=== PATIENT | female | born 1990 | race Caucasian/White ===

== ENCOUNTER 2017-01-16 09:26 | Emergency (ER) | payer MEDICAID ==
[~2017-01-16] VITALS: Ht 157.5 cm; Wt 70.0 kg
[~2017-01-16 09:26] MED LIST: ALBUAER3 INH; BENZ100 PO; MEDR4PAK PO; OSEL75 PO
[2017-01-16 09:29] VITALS: BP 113/54; PULSE 58; RESP 20; TEMP 98; O2SAT 98
[2017-01-16] MEDS ORDERED: KETOROLAC TROMETHAMINE 60 MG/2 ML (IM) VIAL IM ONE (10:30)
[2017-01-16] MEDS ORDERED: ORPHENADRINE INJ 60 MG/2 ML AMP IM ONE (10:30)
--- NOTE | 2017-01-16 10:33 | PD ---
HPI Chief Complaint: Back/ Neck Pain or Injury Time Seen by Provider: 10:31 Travel History International Travel<30 days: No Contact w/Intl Traveler<30days: No Traveled to known affect area: No History of Present Illness HPI 26-year-old female presents to the emergency department for evaluation of low back pain since Sunday, 4 days ago. Patient denies a traumatic injury. She does state the pain is worse with movement. She is also concerned that she may have UTI reporting similar symptoms with UTIs in the past. She denies any dysuria, but states she does have some mild urinary urgency and frequency. Patient denies having any chronic medical problems or taking any prescribed medications. She denies any chance of reporting a previous tubal ligation. Patient denies he fevers or chills. No loss of bowel or bladder control. No saddle anesthesias. No other complaints. PFSH Past Medical History Hx Anticoagulant Therapy: No Cardiovascular Problems: No Chemotherapy: No Cerebrovascular Accident: No Diabetes: No Diminished Hearing: No Respiratory: No Immunizations Current: Yes ?: Not LMP: 12/27/16 Menopausal: No : 5 Para: 4 Miscarriage: 1 Past Surgical History Section: Yes Hysterectomy: No Social History Alcohol Use: No Tobacco Use: No Substance Use: No Allergies-Medications (Allergen,Severity, Reaction): Coded Allergies: No Known Allergies (Verified , 10/19/16) Reported Meds & Prescriptions Reported Meds & Active Scripts Active Tamiflu (Oseltamivir Phosphate) 75 Mg Cap 75 Mg PO BID 5 Days Proair Hfa 8.5 GM Inh (Albuterol Sulfate) 90 Mcg/Act Aer 2 Puff INH Q4-6H PRN 108 mcg/actuation Medrol Dosepak (Methylprednisolone) 4 Mg Dspk 4 Mg PO DIRECTED Per Pharmacist direction Tesariel Perles (Benzonatate) 100 Mg Cap 100-200 Mg PO TID PRN Review of Systems Except as stated in HPI: all other systems reviewed are Neg Physical Exam Narrative GENERAL: Well-developed well-nourished female patient, ambulatory. Afebrile. SKIN: Warm and dry. HEAD: Normocephalic. Atraumatic. EYES: No scleral icterus. No injection or drainage. NECK: Supple, trachea midline. No JVD or lymphadenopathy. CARDIOVASCULAR: Regular rate and rhythm without murmurs, gallops, or rubs. RESPIRATORY: Breath sounds equal bilaterally. No accessory muscle use. Lungs sounds are clear to auscultation. GASTROINTESTINAL: Abdomen soft, non-tender, nondistended. MUSCULOSKELETAL: No cyanosis, or edema. Bilateral upper and lower extremity strength 5/5. All extremities are neurovascularly intact. BACK: No obvious deformity. No CVA tenderness. Patient has tenderness to palpation over bilateral lumbar paraspinal musculature. Data Data Last Documented VS Vital Signs Date Time Temp Pulse Resp B/P Pulse Ox O2 Delivery O2 Flow Rate FiO2 01/16/17 09:29 98.0 58 20 113/54 98 Orders Urinalysis - C+S If Indicated (01/16/17 10:30) Ketorolac Inj (Toradol Inj) (01/16/17 10:30) Orphenadrine Inj (Norflex Inj) (01/16/17 10:30) Urine Culture (01/16/17 10:30) Labs Laboratory Tests Test 01/16/17 10:30 Urine Color YELLOW Urine Turbidity CLOUDY Urine pH 7.5 Urine Specific [place] 1.018 Urine Protein TRACE mg/dL Urine Glucose (UA) NEG mg/dL Urine Ketones NEG mg/dL Urine Occult Blood NEG Urine Nitrite NEG Urine Bilirubin NEG Urine Urobilinogen LESS THAN 2.0 MG/DL Urine Leukocyte Esterase MOD Urine RBC 1 /hpf Urine WBC 10 /hpf Urine Squamous Epithelial 26 /hpf Cells Urine Amorphous Sediment FEW Urine Bacteria OCC /hpf Urine Mucus FEW /lpf Microscopic Urinalysis Comment CULTURE INDICATED MDM Medical Decision Making Medical Screen Exam Complete: Yes Emergency Medical Condition: Yes Medical Record Reviewed: Yes Differential Diagnosis Muscle strain versus muscle spasm versus UTI Narrative Course 26-year-old female presents to the emergency department for evaluation of low back pain. She is concerned she may have UTI as well. Physical exam is consistent with a muscle strain. Patient is given Toradol 60 mg IM and Norflex 60 mg IM. UA is ordered and pending. UA shows moderate leukocyte esterase, however, there are 26 wall is epithelial cells. Due to symptoms, the patient will be discharged prescription for Macrobid for UTI. She also be given a prescription for diclofenac and Robaxin. Patient is agreeable to this plan. The patient was discharged in stable condition with instructions, including return instructions and follow up instructions. Diagnosis Primary Impression: Muscle strain Additional Impression: Urinary tract infection Qualified Code: N30.00 - Acute cystitis without hematuria Referrals: Primary Care Physician call for appointment Patient Instructions: General Instructions, Muscle Strain (ED), Urinary Tract Infection in Women (ED) Additional Instructions: Take Macrobid as directed until gone. This is an antibiotic. Take diclofenac as directed as needed with food for pain. Do not take with other anti-inflammatories including ibuprofen and Robaxin. Take Robaxin as directed as needed. Follow-up with your primary care physician. Return to the emergency department for any acute worsening of symptoms. Med/Other Pt SpecificInfo: Prescription(s) given Scripts Nitrofurantoin Monohydrate Macrocrystals (Macrobid)100 Mg [id number] Mg PO BID 7 Days Ref 0 Prov:Shea Carcamo 01/16/17 Methocarbamol (Robaxin)750 Mg [id number] Mg PO TID PRN (MUSCLE SPASM) #21 TAB Ref 0 Prov:Shea Carcamo 01/16/17 Diclofenac Potassium 50 Mg Tab50 Mg PO TID PRN (PAIN SCALE 1 TO 10) #21 TAB Ref 0 Prov:Shea Carcamo 01/16/17 Disposition: 01 DISCHARGE HOME Condition: Stable Shea Carcamo Jan 16, 2017 10:33
[2017-01-16 11:03] LABS: BACTERIA, URINE OCC /hpf; BLOOD, URINE NEG (NEG); COMMENT (UR) CULTURE INDICATED; CULTURE IF INDICATED CULTURE INDICATED; GLUCOSE,URINE NEG (NEG); KETONE, URINE NEG (NEG); MUCUS URINE FEW /lpf (OCC); NITRITE,URINE NEG (NEG); PH, URINE 7.5 (5.0-8.5); SQUAMOUS EPITHELIAL CELL URINE 26 /hpf (0-5); URINE COLOR YELLOW (YELLW/STRAW)
[2017-01-16] MEDS ORDERED: MACR100C2 PO (11:24)
[2017-01-16] MEDS ORDERED: DICL50TA PO (11:24)
[2017-01-16] MEDS ORDERED: ROBA750T PO (11:24)
== END 2017-01-16 11:36 | disposition home or self-care (01) ==
LOC: NEPB 09:26
DX: S39.012A Strain of muscle, fascia and tendon of lower back, initial encounter (principal); X58.XXXA Exposure to other specified factors, initial encounter; Y93.9 Activity, unspecified; Y92.9 Unspecified place or not applicable; Y99.9 Unspecified external cause status; N39.0 Urinary tract infection, site not specified
CPT/HCPCS: 81001; 87086; 96372; 99283; J1885; J2360

== ENCOUNTER 2017-02-02 09:40 | Emergency (ER) | payer MEDICAID ==
[~2017-02-02] VITALS: Ht 157.5 cm; Wt 75.0 kg
[~2017-02-02 09:40] MED LIST changes: +DICL50TA PO; +MACR100C2 PO; +ROBA750T PO
[2017-02-02 09:42] VITALS: BP 102/53; PULSE 75; RESP 14; TEMP 98.2; O2SAT 98
--- NOTE | 2017-02-02 10:26 | PD ---
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 For the last 3 days she has had frequent urination, small volume. No dysuria or hematuria. She also notes increasing vaginal discharge, yellowish in color. History of recent gonorrhea, chlamydia that was treated. States that she has been having unprotected intercourse with the same partner. Slight amount of lower abdominal discomfort, but no flank pain, fevers chills, nausea or vomiting. PFSH Past Medical History Hx Anticoagulant Therapy: No Cardiovascular Problems: No Chemotherapy: No Cerebrovascular Accident: No Diabetes: No Diminished Hearing: No Respiratory: No Immunizations Current: Yes ?: Not LMP: JANUARY 2017 Menopausal: No : 5 Para: 4 Miscarriage: 1 Past Surgical History Section: Yes Hysterectomy: No Social History Alcohol Use: No Tobacco Use: No Substance Use: No Allergies-Medications (Allergen,Severity, Reaction): Coded Allergies: No Known Allergies (Verified , 10/19/16) Reported Meds & Prescriptions Reported Meds & Active Scripts Active No Active Prescriptions or Reported Medications Review of Systems Except as stated in HPI: all other systems reviewed are Neg Physical Exam Narrative GENERAL: Well-appearing female in no acute distress SKIN: Warm and dry. HEAD: Normocephalic. EYES: No scleral icterus. No injection or drainage. ENT: Mucous membranes pink and moist. NECK: Supple CARDIOVASCULAR: Regular rate and rhythm. RESPIRATORY: No accessory muscle use GASTROINTESTINAL: Abdomen soft, non-tender, nondistended. GENITOURINARY: Normal external female genitalia. Speculum examination reveals physiologic appearing discharge within the vaginal vault. No cervical erythema. Minimal uterine discomfort on bimanual examination but no cervical motion tenderness, adnexal fullness or mass. MUSCULOSKELETAL: Normal gait NEUROLOGICAL: Awake and alert.Normal speech. PSYCHIATRIC: Appropriate mood and affect; insight and judgment normal. Data Data Last Documented VS Vital Signs Date Time Temp Pulse Resp B/P Pulse Ox O2 Delivery O2 Flow Rate FiO2 02/02/17 09:42 98.2 75 14 102/53 98 Orders Urinalysis - C+S If Indicated (02/02/17 10:03) Ed Urine Pregnancytest Poc (02/02/17 10:03) Gc And Chlamydia Pcr (02/02/17 10:18) Wet Prep Profile (02/02/17 10:18) Labs Laboratory Tests Test 02/02/17 10:25 Urine Color YELLOW Urine Turbidity HAZY Urine pH 6.0 Urine Specific [place] 1.021 Urine Protein NEG mg/dL Urine Glucose (UA) NEG mg/dL Urine Ketones NEG mg/dL Urine Occult Blood NEG Urine Nitrite NEG Urine Bilirubin NEG Urine Urobilinogen LESS THAN 2.0 MG/DL Urine Leukocyte Esterase NEG Urine RBC 1 /hpf Urine WBC 2 /hpf Urine Squamous Epithelial 14 /hpf Cells Urine Bacteria OCC /hpf Urine Mucus FEW /lpf Microscopic Urinalysis Comment CULT NOT INDICATED Clue Cells (Wet Prep) NONE SEEN Vaginal Trichomonas (Wet Prep) NONE SEEN Vaginal Yeast (Wet Prep) NONE SEEN MDM Medical Decision Making Medical Screen Exam Complete: Yes Emergency Medical Condition: Yes Medical Record Reviewed: Yes Differential Diagnosis 26-year-old female here with complaint of small volume urinary frequency, vaginal discharge and lower abdominal discomfort. Differential includes , ectopic , urinary tract infection, cystitis and less likely pyelonephritis, sexually transmitted infection, yeast infection, bacterial vaginosis. Narrative Course Urine test was negative. I would not empirically treat patient for gonorrhea or chlamydia based on her symptoms, the specimen was sent to lab. Urinalysis and wet prep showed occasional bacteria but otherwise negative. Patient was encouraged to follow up with REFERRAL NURSE if symptoms persist. Diagnosis Primary Impression: Vaginitis Qualified Code: N76.0 - Acute vaginitis Referrals: Make Up Worker as needed Patient Instructions: General Instructions, Vaginitis (ED) Additional Instructions: Urine sample was normal without evidence of infection. Urine test negative. The wet prep was negative for yeast infection, Trichomonas or bacterial vaginosis. Gonorrhea and chlamydia sample have not yet resulted, and you'll be called for treatment if this does result positive. Follow-up with OB/ REFERRAL NURSE if symptoms persist. Med/Other Pt SpecificInfo: No Change to Meds Scripts No Active Prescriptions or Reported Meds Disposition: 01 DISCHARGE HOME Condition: Stable Elly Ortiz MD Feb 02, 2017 10:26
[2017-02-02 11:40] LABS: BACTERIA, URINE OCC /hpf; BLOOD, URINE NEG (NEG); COMMENT (UR) CULT NOT INDICATED; CULTURE IF INDICATED CULT NOT INDICATED; GLUCOSE,URINE NEG (NEG); KETONE, URINE NEG (NEG); MUCUS URINE FEW /lpf (OCC); NITRITE,URINE NEG (NEG); SQUAMOUS EPITHELIAL CELL URINE 14 /hpf (0-5); URINE COLOR YELLOW (YELLW/STRAW)
[2017-02-02 13:28] LABS: CHLAMYDIA PCR DETECTED (NOT DETECT); NEISSERIA PCR NOT DETECTED (NOT DETECT)
== END 2017-02-02 12:01 | disposition home or self-care (01) ==
LOC: NEPB 09:40
DX: N76.0 Acute vaginitis (principal); R10.30 Lower abdominal pain, unspecified
CPT/HCPCS: 81001; 84703; 87210; 87491; 87591; 99283

== ENCOUNTER 2017-04-25 10:01 | Emergency (ER) | payer MEDICAID ==
[~2017-04-25] VITALS: Ht 160 cm; Wt 68.0 kg
[2017-04-25 10:03] VITALS: BP 117/54; PULSE 58; RESP 20; TEMP 98.2; O2SAT 100
[2017-04-25] MEDS ORDERED: LIDOCAINE HCL 1% 50 ML VIAL IM ONE (10:45)
[2017-04-25] MEDS ORDERED: cefTRIAXone 250 MG VIAL IM ONE (10:45)
[2017-04-25] MEDS ORDERED: AZITHROMYCIN PWD FOR SUSP 1 GM PACKET PO ONE (10:45)
[2017-04-25 11:07] LABS: BACTERIA, URINE RARE /hpf; BLOOD, URINE NEG (NEG); COMMENT (UR) CULTURE INDICATED; CULTURE IF INDICATED CULTURE INDICATED; GLUCOSE,URINE NEG (NEG); KETONE, URINE NEG (NEG); MUCUS URINE FEW /lpf (OCC); NITRITE,URINE NEG (NEG); PH, URINE 5.5 (5.0-8.5); SQUAMOUS EPITHELIAL CELL URINE 40 /hpf (0-5); URINE COLOR YELLOW (YELLW/STRAW)
[2017-04-25] MEDS ORDERED: CIPR-9 PO (11:47)
--- NOTE | 2017-04-25 11:47 | PD ---
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 She says for the past 2 weeks she has had a yellowish, foul-smelling discharge. She also complains of lower abdominal cramping. She denies fever or chills. She denies nausea or vomiting. She says she has had chlamydia in the past, this feels similar. PFSH Past Medical History Hx Anticoagulant Therapy: No Cardiovascular Problems: No Chemotherapy: No Cerebrovascular Accident: No Diabetes: No Diminished Hearing: No Respiratory: No Immunizations Current: Yes ?: Not LMP: 03/29/17 Menopausal: No : 5 Para: 4 Miscarriage: 1 Tubal Ligation: Yes Past Surgical History Section: Yes Hysterectomy: No Social History Alcohol Use: No Tobacco Use: No Substance Use: No Allergies-Medications (Allergen,Severity, Reaction): Coded Allergies: No Known Allergies (Verified , 10/19/16) Reported Meds & Prescriptions Reported Meds & Active Scripts Active No Active Prescriptions or Reported Medications Review of Systems Except as stated in HPI: all other systems reviewed are Neg General / Constitutional: No: Fever, Chills HENT: No: Headaches, Lightheadedness Cardiovascular: No: Chest Pain or Discomfort Respiratory: No: Shortness of Breath Gastrointestinal: Positive: Abdominal Pain, No: Nausea, Vomiting Genitourinary: Positive: Discharge Musculoskeletal: No: Myalgias Skin: No Rash, No Change in Pigmentation Neurologic: No: Weakness, Dizziness Physical Exam Narrative GENERAL: Awake and alert, in no acute distress. SKIN: Focused skin assessment warm/dry. HEAD: Atraumatic. Normocephalic. EYES: Pupils equal and round. No scleral icterus. ENT: Mucous membranes pink and moist. NECK: Trachea midline. No JVD. CARDIOVASCULAR: Regular rate and rhythm. No murmur appreciated. RESPIRATORY: No accessory muscle use. Clear to auscultation. Breath sounds equal bilaterally. GASTROINTESTINAL: Abdomen soft, nondistended. Mild tenderness to the suprapubic area. No rebound or guarding. : Exam performed in the presence of a female nurse. She has a large amount of thick white discharge. No CMT, no cervical lesions. MUSCULOSKELETAL: No obvious deformities. No clubbing. No cyanosis. No edema. NEUROLOGICAL: Awake and alert. No obvious cranial nerve deficits. Motor grossly within normal limits. Normal speech. PSYCHIATRIC: Appropriate mood and affect; insight and judgment normal. Data Data Last Documented VS Vital Signs Date Time Temp Pulse Resp B/P Pulse Ox O2 Delivery O2 Flow Rate FiO2 04/25/17 10:03 98.2 58 20 117/54 100 Room Air Orders Gc And Chlamydia Pcr (04/25/17 10:36) Wet Prep Profile (04/25/17 10:36) Urinalysis - C+S If Indicated (04/25/17 10:36) Ua Includes Microscopic (04/25/17 10:36) Azithromycin Powd Pack (Zithromax Powd P (04/25/17 10:45) Ceftriaxone Inj (Rocephin Inj) (04/25/17 10:45) Lidocaine 1% Inj (50 Ml) (Xylocaine 1% I (04/25/17 10:45) Ed Urine Pregnancytest Poc (04/25/17 10:36) Urine Culture (04/25/17 10:30) Labs Laboratory Tests Test 04/25/17 10:30 Urine Color YELLOW Urine Turbidity HAZY Urine pH 5.5 Urine Specific [place] 1.028 Urine Protein TRACE mg/dL Urine Glucose (UA) NEG mg/dL Urine Ketones NEG mg/dL Urine Occult Blood NEG Urine Nitrite NEG Urine Bilirubin NEG Urine Urobilinogen LESS THAN 2.0 MG/DL Urine Leukocyte Esterase LARGE Urine RBC 2 /hpf Urine WBC 12 /hpf Urine Squamous Epithelial 40 /hpf Cells Urine Bacteria RARE /hpf Urine Mucus FEW /lpf Microscopic Urinalysis Comment CULTURE INDICATED Clue Cells (Wet Prep) NONE SEEN Vaginal Trichomonas (Wet Prep) NONE SEEN Vaginal Yeast (Wet Prep) NONE SEEN MDM Medical Decision Making Medical Screen Exam Complete: Yes Emergency Medical Condition: Yes Medical Record Reviewed: Yes Differential Diagnosis GC/chlamydia versus vaginosis versus UTI Narrative Course Patient is a 26-year-old female comes in complaining of vaginal discharge. Exam shows a thick white discharge, no CMT. Urinalysis is positive for UTI. Wet prep shows no abnormalities. Swab sent for GC and chlamydia. Patient treated with Rocephin and azithromycin. She'll be discharged with prescription for Cipro. Advised follow-up with gynecology. Advised to return to the ED as needed for any worsening symptoms. She is advised to refrain from sex for the next 2 weeks. Advised to have her partner tested and treated as necessary. Diagnosis Primary Impression: Urinary tract infection Qualified Code: N30.00 - Acute cystitis without hematuria Patient Instructions: General Instructions, Urinary Tract Infection in Women ( ED) Additional Instructions: Follow-up with gynecology. He will treated for gonorrhea and chlamydia today. The test will come back later today, he will receive a letter in the mail if your test is positive. If you are positive, your partner will need to be treated as well. Refrain from sexual intercourse for the next 2 weeks. Take off her antibiotics. Return to the ED as needed for any worsening symptoms. Scripts Ciprofloxacin (Cipro)500 Mg [id number] Mg PO BID 3 Days Ref 0 Prov:Mable Gardner MD 04/25/17 Disposition: 01 DISCHARGE HOME Condition: Stable Mable Gardner MD Apr 25, 2017 11:47
[2017-04-25 12:35] LABS: CHLAMYDIA PCR NOT DETECTED (NOT DETECT); NEISSERIA PCR NOT DETECTED (NOT DETECT)
== END 2017-04-25 11:56 | disposition home or self-care (01) ==
LOC: NEPD 10:01
DX: N39.0 Urinary tract infection, site not specified (principal); B96.89 Other specified bacterial agents as the cause of diseases classified elsewhere
CPT/HCPCS: 81001; 84703; 87086; 87210; 87491; 87591; 96372; 99284; J0696

== ENCOUNTER 2017-05-13 23:04 | Emergency (ER) | payer MEDICAID ==
[~2017-05-13] VITALS: Ht 160 cm; Wt 65.0 kg
[~2017-05-13 23:04] MED LIST changes: -ALBUAER3 INH; -BENZ100 PO; +CIPR-9 PO; -DICL50TA PO; -MACR100C2 PO; -MEDR4PAK PO; -OSEL75 PO; -ROBA750T PO
[2017-05-13 23:08] VITALS: BP 133/80; PULSE 55; RESP 14; TEMP 99; O2SAT 100
[2017-05-14] MEDS ORDERED: DICL50TA3 PO
[2017-05-14] MEDS ORDERED: AMOXICILLIN (TRIHYDRATE) 500 MG CAP PO ONE
[2017-05-14] MEDS ORDERED: AMOX500C PO
[2017-05-14] MEDS ORDERED: ACETAMINOPHEN/HYDROcodone 325 MG/5 MG TAB PO ONE
--- NOTE | 2017-05-14 00:04 | PD ---
HPI Chief Complaint: Oral / Dental Pain or Problem Time Seen by Provider: 00:01 Travel History International Travel<30 days: No Contact w/Intl Traveler<30days: No Traveled to known affect area: No History of Present Illness HPI 26-year-old white female presents emergent heart with a 2 day history of left lower dental pain. Patient states that she's had problems with this tooth on and off for the past. She has had associated pain to her left ear and left jaw. No fever chills. No swelling of the tongue or floor the mouth. Denies . PFSH Past Medical History Narrative Medical Dental caries Hx Anticoagulant Therapy: No Cardiovascular Problems: No Chemotherapy: No Cerebrovascular Accident: No Diabetes: No Diminished Hearing: No Respiratory: No Immunizations Current: Yes Tetanus Vaccination: < 5 Years ?: Not LMP: 04/28/17 Menopausal: No : 5 Para: 4 Miscarriage: 1 Tubal Ligation: Yes Past Surgical History Section: Yes Hysterectomy: No Social History Alcohol Use: No Tobacco Use: No Substance Use: No Allergies-Medications (Allergen,Severity, Reaction): Coded Allergies: No Known Allergies (Verified , 05/13/17) Reported Meds & Prescriptions Reported Meds & Active Scripts Active Diclofenac Sodium DR (Diclofenac Sodium) 50 Mg Tabdr 50 Mg PO TID Amoxicillin 500 Mg Cap 500 Mg PO TID Review of Systems Except as stated in HPI: all other systems reviewed are Neg Eyes: No: Diploplia, Blurred Vision HENT: Positive: Dental Difficulties, Earache, No: Headaches, Sore Throat, Ear Discharge Cardiovascular: No: Chest Pain or Discomfort, Tachycardia Respiratory: No: Cough Physical Exam Narrative GENERAL: Well-developed, well-nourished in no acute distress. Nontoxic appearing. HEAD: Normocephalic, atraumatic. EYES: Pupils equal round and reactive. Extraocular motions intact. No scleral icterus. No injection or drainage. ENT: TMs clear without erythema. The external auditory canals clear. Nose: clear . Posterior pharynx is pink and moist. No tonsillar edema or exudate. Uvula midline. Airway patent. The patient has poor dentition. She has a large dental carry in tooth #17. There is mild gingival erythema and edema. Pain to percussion. No facial swelling. NECK: Trachea midline.Supple, nontender, moves head freely. No central bony tenderness or spasm. CARDIOVASCULAR: Regular rate and rhythm without murmurs, gallops, or rubs. RESPIRATORY: Clear to auscultation. Breath sounds equal bilaterally. No wheezes , rales, or rhonchi. GASTROINTESTINAL: Abdomen soft, non-tender, nondistended. No hepato-splenomegaly , or palpable masses. No guarding. EXTREMITIES: No clubbing, cyanosis, or edema. No joint tenderness, effusion, or edema noted. BACK: Nontender without deformity or crepitance. No flank tenderness. Data Data Last Documented VS Vital Signs Date Time Temp Pulse Resp B/P Pulse Ox O2 Delivery O2 Flow Rate FiO2 05/13/17 23:08 99.0 55 14 133/80 100 Room Air Orders Amoxicillin (Trimox) (05/14/17 00:00) Acetamin-Hydrocod 325-5 Mg ([place] 5-325 (05/14/17 00:00) MDM Medical Decision Making Medical Screen Exam Complete: Yes Emergency Medical Condition: Yes Medical Record Reviewed: Yes Differential Diagnosis MDM: Moderate Differential diagnoses: Dental abscess, dental caries, osteitis, cellulitis Narrative Course Patient's given amoxicillin 500 and Lortab 5 mg by mouth. This is dental caries, dentalgia Diagnosis Primary Impression: Dental caries Additional Impression: Dentalgia Patient Instructions: Narcotic given in the ED, General Instructions Additional Instructions: Rest. [place] gargles. [place] oil on cotton balls. Amoxicillin and diclofenac.. follow-up with a dentist as soon as possible. And return to the ER if any problems. Med/Other Pt SpecificInfo: Prescription(s) given Scripts Diclofenac Sodium DR 50 Mg Tabdr50 Mg PO TID #21 TAB Prov:Mateo Tenorio MD 05/14/17 Amoxicillin 500 Mg [id number] Mg PO TID #30 CAP Prov:Mateo Tenorio MD 05/14/17 Disposition: 01 DISCHARGE HOME Condition: Stable Juan José Marquis May 14, 2017 00:04
== END 2017-05-14 00:17 | disposition home or self-care (01) ==
LOC: NEPD 23:04
DX: K02.9 Dental caries, unspecified (principal)
CPT/HCPCS: 99284

== ENCOUNTER 2017-11-08 13:35 | Emergency (ER) | payer MEDICAID, OTHER ==
[~2017-11-08 13:35] MED LIST changes: +AMOX500C PO; -CIPR-9 PO; +DICL50TA3 PO
[2017-11-08 13:36] VITALS: BP 114/67; PULSE 56; RESP 12; TEMP 98.8; O2SAT 100
[2017-11-08 14:47] LABS: AUTOMATED NEUTROPHIL # 2.1 TH/MM3 (1.8-7.7); BASOPHIL % 0.2 % (0.0-2.0); EOSINOPHIL # 0.1 TH/MM3 (0-0.4); EOSINOPHIL % 2.3 % (0.0-4.0); HEMATOCRIT 42.1 % (35.0-46.0); HEMOGLOBIN 14.2 GM/DL (11.6-15.3); LYMPH % 28.5 % (9.0-44.0); LYMPHOCYTE # 1.1 TH/MM3 (1.0-4.8); MEAN CELL VOLUME 94.3 FL (80.0-100.0); MEAN CORPUSCULAR HEMOGLOBIN 31.8 PG (27.0-34.0); MEAN CORPUSCULAR HGB CONC 33.7 % (32.0-36.0); MEAN PLATELET VOLUME 7.9 FL (7.0-11.0); MONO % 12.8 % (0.0-8.0); MONOCYTE # 0.5 TH/MM3 (0-0.9); NEUT % 56.2 % (16.0-70.0); PLATELET COUNT 214 TH/MM3 (150-450); RED BLOOD COUNT 4.46 MIL/MM3 (4.00-5.30); RED CELL DISTRIBUTION WIDTH 13.5 % (11.6-17.2); WHITE BLOOD COUNT 3.7 TH/MM3 (4.0-11.0)
[2017-11-08 14:59] LABS: BACTERIA, URINE MOD /hpf; BILIRUBIN, URINE NEG (NEG); BLOOD, URINE TRACE (NEG); CALCIUM OXALATE CRYSTALS,URINE MANY /hpf; GLUCOSE,URINE NEG (NEG); HYALINE CAST, URINE 2 /lpf (RARE); KETONE, URINE NEG (NEG); MUCUS URINE MANY /lpf (OCC); NITRITE,URINE NEG (NEG); PH, URINE 6.5 (5.0-8.5); SQUAMOUS EPITHELIAL CELL URINE 9 /hpf (0-5); URINE COLOR YELLOW (YELLW/STRAW); URINE LEUKOCYTE ESTERASE MOD (NEG)
[2017-11-08 15:03] LABS: ALBUMIN 3.9 GM/DL (3.4-5.0); ALT (GPT) 17 U/L (10-53); AST (GOT) 16 U/L (15-37); BICARBONATE 26.3 MEQ/L (21.0-32.0); BLOOD UREA NITROGEN 11 MG/DL (7-18); CALCIUM 10.2 MG/DL (8.5-10.1); CHLORIDE 106 MEQ/L (98-107); CREATININE 0.57 MG/DL (0.50-1.00); GLOMERULAR FILTRATION RATE 128 ML/MIN (>89); GLUCOSE,RANDOM 98 MG/DL (74-106); LIPASE 114 U/L (73-393); SODIUM (NA) 140 MEQ/L (136-145)
[2017-11-08 15:06] LABS: ALKALINE PHOSPHATASE 69 U/L (45-117); TOTAL BILIRUBIN ADULT 0.7 MG/DL (0.2-1.0); TOTAL PROTEIN 7.2 GM/DL (6.4-8.2)
--- NOTE | 2017-11-08 15:40 | PD ---
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 Onset of fever, vomiting last night. MAXIMUM TEMPERATURE of 101.0 last night. No fever today. Reports diarrhea. No chest pain, shortness of breath. She has little bit of low back pain. Denies dysuria, hematuria, urinary frequency. Last menstrual period was mid October. Has not taken any medications or tried any treatments to alleviate her symptoms. No known aggravating or relieving factors. No known allergies. History tubal ligation. Denies other significant past medical history. Has no other medical complaints. Does not have an established primary care provider. No other modifying factors or associated signs and symptoms. PFSH Past Medical History Hx Anticoagulant Therapy: No Cardiovascular Problems: No Chemotherapy: No Cerebrovascular Accident: No Diabetes: No Diminished Hearing: No Respiratory: No Immunizations Current: Yes ?: Not Menopausal: No : 5 Para: 4 Miscarriage: 1 Tubal Ligation: Yes Past Surgical History Section: Yes Hysterectomy: Yes (BTL) Social History Alcohol Use: No Tobacco Use: No Substance Use: No Allergies-Medications (Allergen,Severity, Reaction): Coded Allergies: No Known Allergies (Verified , 05/13/17) Reported Meds & Prescriptions Reported Meds & Active Scripts Active Review of Systems Except as stated in HPI: all other systems reviewed are Neg Physical Exam Narrative GENERAL: Well-nourished, well-developed female patient, in no acute distress; afebrile, nontoxic-appearing SKIN: Warm and dry. HEAD: Atraumatic. Normocephalic. EYES: Pupils equal and round. No scleral icterus. No injection or drainage. ENT: Mucous membranes pink and moist. NECK: Trachea midline. No lymphadenopathy. CARDIOVASCULAR: Regular rate and rhythm. No murmur appreciated. RESPIRATORY: No accessory muscle use. Clear to auscultation. Breath sounds equal bilaterally. GASTROINTESTINAL: Abdomen soft, non-tender, nondistended. Bilateral pelvic region nontender to palpation. Hepatic and splenic margins not palpable. No guarding, rigidity, rebound tenderness. PELVIC: Exam done in the presence of a nurse. Speculum exam reveals edematous and erythematous cervix with creamy white, mucopurulent, foul-smelling discharge. Bimanual exam reveals no palpable masses or adnexa tenderness, no uterine tenderness. No cervical motion tenderness. BACK: No CVA tenderness. MUSCULOSKELETAL: No obvious deformities. No clubbing. No cyanosis. No edema. NEUROLOGICAL: Awake and alert. No obvious cranial nerve deficits. Motor grossly within normal limits. Normal speech. PSYCHIATRIC: Appropriate mood and affect; insight and judgment normal. Data Data Last Documented VS Vital Signs Date Time Temp Pulse Resp B/P (MAP) Pulse Ox O2 Delivery O2 Flow Rate FiO2 11/08/17 17:35 17 11/08/17 13:36 98.8 56 114/67 (83) 100 Orders Orders Complete Blood Count With Diff (11/08/17 14:02) Comprehensive Metabolic Panel (11/08/17 14:02) Urinalysis - C+S If Indicated (11/08/17 14:02) Lipase (11/08/17 14:02) Urine Culture (11/08/17 14:15) Gc And Chlamydia Pcr (11/08/17 15:40) Wet Prep Profile (11/08/17 15:40) Sodium Chloride 0.9% Flush (Ns Flush) (11/08/17 15:45) Ed Urine Pregnancytest Poc (11/08/17 15:40) Sodium Chlor 0.9% 1000 Ml Inj (Ns 1000 M (11/08/17 15:45) Ondansetron Inj (Zofran Inj) (11/08/17 15:45) Ceftriaxone Inj (Rocephin Inj) (11/08/17 15:45) Ketorolac Inj (Toradol Inj) (11/08/17 16:00) Ondansetron Odt (Zofran Odt) (11/08/17 16:00) Nitrofurantoin Monohyd Macrocr (Macrobid (11/08/17 16:00) Ceftriaxone Inj (Rocephin Inj) (11/08/17 17:00) Lidocaine 1% Inj (50 Ml) (Xylocaine 1% I (11/08/17 17:00) Azithromycin (Zithromax) (11/08/17 17:00) Labs Laboratory Tests Test 11/08/17 14:15 11/08/17 14:18 11/08/17 16:50 Urine Color YELLOW Urine Turbidity HAZY Urine pH 6.5 Urine Specific [place] 1.035 Urine Protein 30 mg/dL Urine Glucose (UA) NEG mg/dL Urine Ketones NEG mg/dL Urine Occult Blood TRACE Urine Nitrite NEG Urine Bilirubin NEG Urine Urobilinogen 4.0 MG/DL Urine Leukocyte Esterase MOD Urine RBC 7 /hpf Urine WBC 3 /hpf Urine Squamous Epithelial Cells 9 /hpf Urine Calcium Oxalate Crystals MANY /hpf Urine Bacteria MOD /hpf Urine Hyaline Casts 2 /lpf Urine Mucus MANY /lpf Microscopic Urinalysis Comment CULTURE INDICATED White Blood Count 3.7 TH/MM3 Red Blood Count 4.46 MIL/MM3 Hemoglobin 14.2 GM/DL Hematocrit 42.1 % Mean Corpuscular Volume 94.3 FL Mean Corpuscular Hemoglobin 31.8 PG Mean Corpuscular Hemoglobin Concent 33.7 % Red Cell Distribution Width 13.5 % Platelet Count 214 TH/MM3 Mean Platelet Volume 7.9 FL Neutrophils (%) (Auto) 56.2 % Lymphocytes (%) (Auto) 28.5 % Monocytes (%) (Auto) 12.8 % Eosinophils (%) (Auto) 2.3 % Basophils (%) (Auto) 0.2 % Neutrophils # (Auto) 2.1 TH/MM3 Lymphocytes # (Auto) 1.1 TH/MM3 Monocytes # (Auto) 0.5 TH/MM3 Eosinophils # (Auto) 0.1 TH/MM3 Basophils # (Auto) 0.0 TH/MM3 CBC Comment DIFF FINAL Differential Comment Blood Urea Nitrogen 11 MG/DL Creatinine 0.57 MG/DL Random Glucose 98 MG/DL Total Protein 7.2 GM/DL Albumin 3.9 GM/DL Calcium Level 10.2 MG/DL Alkaline Phosphatase 69 U/L Aspartate Amino Transf (AST/SGOT) 16 U/L Alanine Aminotransferase (ALT/SGPT) 17 U/L Total Bilirubin 0.7 MG/DL Sodium Level 140 MEQ/L Potassium Level 3.6 MEQ/L Chloride Level 106 MEQ/L Carbon Dioxide Level 26.3 MEQ/L Anion Gap 8 MEQ/L Estimat Glomerular Filtration Rate 128 ML/MIN Lipase 114 U/L Clue Cells (Wet Prep) PRESENT Vaginal Trichomonas (Wet Prep) NONE SEEN Vaginal Yeast (Wet Prep) NONE SEEN MDM Medical Decision Making Medical Screen Exam Complete: Yes Emergency Medical Condition: Yes Medical Record Reviewed: Yes Differential Diagnosis Cervicitis, UTI, chlamydia, gonorrhea Narrative Course 1539: CBC, CMP, lipase unremarkable. Urinalysis with signs of infection and reflex to culture. Macrobid, Toradol, Zofran ordered. 1650: Cervix is erythematous and edematous with foul-smelling mucopurulent discharge. Azithromycin and Rocephin ordered for empirical treatment. 1740: Clue cells positive. Trichomonas and vaginal yeast negative. Chlamydia and gonorrhea pending. Flagyl, Macrobid, Pyridium prescribed for home. Instructed patient to follow up with gynecology. Instructed patient to follow up with primary care provider. Patient verbalizes understanding and agreement with treatment plan. Patient is medically cleared and stable for discharge. Discussed reasons to return to the emergency department. Patient agrees with treatment plan. The patients vital signs are stable and the patient is stable for outpatient follow-up and treatment. Patient discharged home, stable and in no acute distress. 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 Patient Instructions: Bacterial Vaginosis (ED), Cervicitis (ED), General Instructions, Urinary Tract Infection in Women (ED) Additional Instructions: Take antibiotics as prescribed and complete full course Take Pyridium for bladder spasms: Pyridium will turn your urine bright orange Drink plenty of fluids Maintain good personal hygiene Follow-up with primary care provider Return to the emergency department immediately with worsening of symptoms Avoid sexual activity until for 14 days Avoid sexual activity with infected partner/s for up to 14 days of them being treated Inform all sexual partners within the past 3-6 months that they need to be evaluated and treated Use condoms every time you have sex Follow-up with primary care provider Return to the emergency department immediately with worsening of symptoms Med/Other Pt SpecificInfo: Prescription(s) given Scripts Metronidazole (Flagyl) 500 Mg Tab 500 MG PO BID for Infection, #7 TAB 0 Refills Prov: Nora Choi 11/08/17 Disposition: DISCHARGE HOME Condition: Stable Nora Choi Nov 08, 2017 15:40
[2017-11-08] MEDS ORDERED: cefTRIAXone INJ 1,000 MG in SODIUM CHLORIDE 0.9% INJ 100 ML IV ONE (15:45)
[2017-11-08] MEDS ORDERED: ONDANSETRON HCL 4 MG/2 ML VIAL IV PUSH ONE (15:45)
[2017-11-08] MEDS ORDERED: SODIUM CHLORIDE 0.9% FLUSH 10 ML FLUSH IVF PRN (15:45)
[2017-11-08] MEDS ORDERED: SODIUM CHLOR 0.9% 1000 ML INJ 1,000 ML IV ONE (15:45)
[2017-11-08] MEDS ORDERED: MACR100C2 PO (15:55)
[2017-11-08] MEDS ORDERED: PHEN0.4T PO (15:55)
[2017-11-08] MEDS ORDERED: NITROFURANTOIN MONOHYD MACROCR 100 MG CAP PO ONE (16:00)
[2017-11-08] MEDS ORDERED: ONDANSETRON ODT 4 MG TAB PO ONE (16:00)
[2017-11-08] MEDS ORDERED: KETOROLAC TROMETHAMINE 30 MG/ML (IVP) VIAL IV PUSH ONE (16:00)
[2017-11-08] MEDS ORDERED: AZITHROMYCIN 250 MG TAB PO ONE (17:00)
[2017-11-08] MEDS ORDERED: cefTRIAXone 250 MG VIAL IM ONE (17:00)
[2017-11-08] MEDS ORDERED: LIDOCAINE HCL 1% 50 ML VIAL IM ONE (17:00)
[2017-11-08 17:35] VITALS: RESP 17
[2017-11-08] MEDS ORDERED: METR-1 PO (17:40)
== END 2017-11-08 18:53 | disposition home or self-care (01) ==
LOC: NEPD 13:35
DX: N39.0 Urinary tract infection, site not specified (principal); N72 Inflammatory disease of cervix uteri; N76.0 Acute vaginitis; B96.89 Other specified bacterial agents as the cause of diseases classified elsewhere
CPT/HCPCS: 80053; 81001; 83690; 84703; 85025; 87086; 87210; 87491; 87591; 96372; 96374; 99284; J0696; J1885

== ENCOUNTER 2018-01-09 11:23 | Emergency (ER) | payer OTHER ==
[~2018-01-09] VITALS: Ht 157.5 cm; Wt 77.0 kg
[~2018-01-09 11:23] MED LIST changes: -AMOX500C PO; -DICL50TA3 PO; +METR-1 PO
[2018-01-09 11:35] VITALS: BP 111/56; PULSE 83; RESP 16; TEMP 98.1; O2SAT 98
--- NOTE | 2018-01-09 12:14 | PD ---
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 patient states that she has mild lower/suprapubic discomfort, 4/ 10, nonrad, for past 1-2 days. no alleviating/aggravating factors. all:nkda pshx:btl pmhx:denies PFSH Past Medical History Medical History: Denies Significant Hx Hx Anticoagulant Therapy: No Cardiovascular Problems: No Chemotherapy: No Cerebrovascular Accident: No Diabetes: No Diminished Hearing: No Respiratory: No Immunizations Current: Yes Tetanus Vaccination: < 5 Years ?: Not Menopausal: No : 5 Para: 4 Miscarriage: 1 Tubal Ligation: Yes Past Surgical History Section: Yes Hysterectomy: Yes (BT) Social History Alcohol Use: No Tobacco Use: No Substance Use: No Allergies-Medications (Allergen,Severity, Reaction): Coded Allergies: No Known Allergies (Verified Adverse Reaction, Unknown, 01/09/18) Reported Meds & Prescriptions Reported Meds & Active Scripts Active Review of Systems General / Constitutional: No: Fever Eyes: No: Visual changes HENT: No: Headaches Cardiovascular: No: Chest Pain or Discomfort Respiratory: No: Shortness of Breath Gastrointestinal: No: Abdominal Pain Genitourinary: Positive: Vaginal Bleeding Musculoskeletal: No: Pain Skin: No Rash Neurologic: No: Weakness Psychiatric: No: Depression Endocrine: No: Polydipsia Hematologic/Lymphatic: No: Easy Bruising Physical Exam Narrative GENERAL: SKIN: Warm and dry. HEAD: Atraumatic. Normocephalic. EYES: Pupils equal and round. No scleral icterus. No injection or drainage. ENT: No nasal bleeding or discharge. Mucous membranes pink and moist. NECK: Trachea midline. No JVD. CARDIOVASCULAR: Regular rate and rhythm. RESPIRATORY: No accessory muscle use. Clear to auscultation. Breath sounds equal bilaterally. GASTROINTESTINAL: Abdomen soft, non-tender, nondistended. MUSCULOSKELETAL: Extremities without clubbing, cyanosis, or edema. No obvious deformities. NEUROLOGICAL: Awake and alert. No obvious cranial nerve deficits. Motor grossly within normal limits. Five out of 5 muscle strength in the arms and legs. Normal speech. PSYCHIATRIC: Appropriate mood and affect; insight and judgment normal. Data Data Last Documented VS Vital Signs Date Time Temp Pulse Resp B/P (MAP) Pulse Ox O2 Delivery O2 Flow Rate FiO2 01/09/18 11:35 98.1 83 16 111/56 (74) 98 Orders Orders Complete Blood Count With Diff (01/09/18 11:52) Comprehensive Metabolic Panel (01/09/18 11:52) Prothrombin Time / Inr (Pt) (01/09/18 11:52) Act Partial Throm Time (Ptt) (01/09/18 11:52) Lipase (01/09/18 11:52) Urinalysis - C+S If Indicated (01/09/18 11:52) Beta Hcg (Quant/Titer) (01/09/18 11:52) Complete Rh (01/09/18 11:52) Thyroid Stimulating Hormone (01/09/18 11:52) Iv Access Insert/Monitor (01/09/18 11:52) Ecg Monitoring (01/09/18 11:52) Oximetry (01/09/18 11:52) Urine Culture (01/09/18 12:00) Tramadol (Ultram) (01/09/18 13:00) Ondansetron Odt (Zofran Odt) (01/09/18 13:00) Labs Laboratory Tests Test 01/09/18 12:00 White Blood Count 5.2 TH/MM3 Red Blood Count 4.17 MIL/MM3 Hemoglobin 13.5 GM/DL Hematocrit 39.1 % Mean Corpuscular Volume 93.7 FL Mean Corpuscular Hemoglobin 32.4 PG Mean Corpuscular Hemoglobin Concent 34.5 % Red Cell Distribution Width 13.6 % Platelet Count 205 TH/MM3 Mean Platelet Volume 7.7 FL Neutrophils (%) (Auto) 64.7 % Lymphocytes (%) (Auto) 26.3 % Monocytes (%) (Auto) 7.7 % Eosinophils (%) (Auto) 1.0 % Basophils (%) (Auto) 0.3 % Neutrophils # (Auto) 3.4 TH/MM3 Lymphocytes # (Auto) 1.4 TH/MM3 Monocytes # (Auto) 0.4 TH/MM3 Eosinophils # (Auto) 0.0 TH/MM3 Basophils # (Auto) 0.0 TH/MM3 CBC Comment DIFF FINAL Differential Comment Prothrombin Time 10.1 SEC Prothromb Time International Ratio 1.0 RATIO Activated Partial Thromboplast Time 25.2 SEC Urine Color YELLOW Urine Turbidity HAZY Urine pH 6.0 Urine Specific [place] 1.026 Urine Protein 30 mg/dL Urine Glucose (UA) NEG mg/dL Urine Ketones NEG mg/dL Urine Occult Blood LARGE Urine Nitrite NEG Urine Bilirubin NEG Urine Urobilinogen LESS THAN 2.0 MG/DL Urine Leukocyte Esterase TRACE Urine RBC /hpf Urine WBC 23 /hpf Urine Squamous Epithelial Cells 4 /hpf Urine Bacteria RARE /hpf Urine Mucus MOD /lpf Microscopic Urinalysis Comment CULTURE INDICATED Blood Urea Nitrogen 12 MG/DL Creatinine 0.66 MG/DL Random Glucose 92 MG/DL Total Protein 6.7 GM/DL Albumin 3.8 GM/DL Calcium Level 9.8 MG/DL Alkaline Phosphatase 65 U/L Aspartate Amino Transf (AST/SGOT) 10 U/L Alanine Aminotransferase (ALT/SGPT) 15 U/L Total Bilirubin 1.0 MG/DL Sodium Level 140 MEQ/L Potassium Level 3.7 MEQ/L Chloride Level 106 MEQ/L Carbon Dioxide Level 26.4 MEQ/L Anion Gap 8 MEQ/L Estimat Glomerular Filtration Rate 107 ML/MIN Lipase 108 U/L Thyroid Stimulating Hormone 3rd Gen 1.470 uIU/ML Human Chorionic Gonadotropin, Quant LESS THAN 1 MIU/ML MDM Medical Decision Making Medical Screen Exam Complete: Yes Emergency Medical Condition: Yes Medical Record Reviewed: Yes Differential Diagnosis dub v misscarriage v related Narrative Course negative no leukocytosis/anemia/left shift or abnormal platelet count coag profile wnl electrolytes wnl, normal liver/kidney/pancreas function, also normal tsh screen , confirmed neg ua c/w uti Diagnosis Primary Impression: Dysfunctional uterine bleeding Additional Impression: UTI Patient Instructions: Dysfunctional Uterine Bleeding (ED), General Instructions , Urinary Tract Infection in Women (DC) Disposition: DISCHARGE HOME Condition: Stable Mahin Quintero MD Jan 09, 2018 12:14
[2018-01-09 12:23] LABS: AUTOMATED NEUTROPHIL # 3.4 TH/MM3 (1.8-7.7); BASOPHIL % 0.3 % (0.0-2.0); HEMATOCRIT 39.1 % (35.0-46.0); HEMOGLOBIN 13.5 GM/DL (11.6-15.3); LYMPH % 26.3 % (9.0-44.0); LYMPHOCYTE # 1.4 TH/MM3 (1.0-4.8); MEAN CELL VOLUME 93.7 FL (80.0-100.0); MEAN CORPUSCULAR HEMOGLOBIN 32.4 PG (27.0-34.0); MEAN CORPUSCULAR HGB CONC 34.5 % (32.0-36.0); MEAN PLATELET VOLUME 7.7 FL (7.0-11.0); MONO % 7.7 % (0.0-8.0); MONOCYTE # 0.4 TH/MM3 (0-0.9); NEUT % 64.7 % (16.0-70.0); PLATELET COUNT 205 TH/MM3 (150-450); RED BLOOD COUNT 4.17 MIL/MM3 (4.00-5.30); RED CELL DISTRIBUTION WIDTH 13.6 % (11.6-17.2); WHITE BLOOD COUNT 5.2 TH/MM3 (4.0-11.0)
[2018-01-09 12:28] LABS: BACTERIA, URINE RARE /hpf; BILIRUBIN, URINE NEG (NEG); BLOOD, URINE LARGE (NEG); GLUCOSE,URINE NEG (NEG); KETONE, URINE NEG (NEG); MUCUS URINE MOD /lpf (OCC); NITRITE,URINE NEG (NEG); SQUAMOUS EPITHELIAL CELL URINE 4 /hpf (0-5); URINE COLOR YELLOW (YELLW/STRAW); URINE LEUKOCYTE ESTERASE TRACE (NEG)
[2018-01-09 12:32] LABS: PROTHROMBIN TIME - PATIENT 10.1 SEC (9.8-11.6)
[2018-01-09 12:41] LABS: ALBUMIN 3.8 GM/DL (3.4-5.0); AST (GOT) 10 U/L (15-37); BICARBONATE 26.4 MEQ/L (21.0-32.0); BLOOD UREA NITROGEN 12 MG/DL (7-18); CALCIUM 9.8 MG/DL (8.5-10.1); CHLORIDE 106 MEQ/L (98-107); CREATININE 0.66 MG/DL (0.50-1.00); GLOMERULAR FILTRATION RATE 107 ML/MIN (>89); GLUCOSE,RANDOM 92 MG/DL (74-106); SODIUM (NA) 140 MEQ/L (136-145)
[2018-01-09 12:51] LABS: ALKALINE PHOSPHATASE 65 U/L (45-117); ALT (GPT) 15 U/L (10-53); TOTAL PROTEIN 6.7 GM/DL (6.4-8.2)
[2018-01-09] MEDS ORDERED: traMADol HCL 50 MG TAB PO ONE (13:00)
[2018-01-09] MEDS ORDERED: ONDANSETRON ODT 4 MG TAB PO/SL ONE (13:00)
[2018-01-09] MEDS ORDERED: TRAM50 PO (13:14)
[2018-01-09] MEDS ORDERED: ESTR.3 PO (13:14)
[2018-01-09] MEDS ORDERED: MACR100C2 PO (13:14)
[2018-01-10] MEDS ORDERED: LIDOCAINE HCL 2% 50 ML VIAL ONE (07:20)
== END 2018-01-09 13:38 | disposition home or self-care (01) ==
LOC: NEPD 11:23
DX: N93.8 Other specified abnormal uterine and vaginal bleeding (principal); N39.0 Urinary tract infection, site not specified; B95.1 Streptococcus, group B, as the cause of diseases classified elsewhere
CPT/HCPCS: 80053; 81001; 83690; 84443; 84702; 85025; 85610; 85730; 86403; 87077; 87086; 87186; 99283

== ENCOUNTER 2018-01-17 18:52 | Emergency (ER) | payer MEDICAID, OTHER ==
[~2018-01-17] VITALS: Ht 157.5 cm; Wt 72.3 kg
[~2018-01-17 18:52] MED LIST changes: +ESTR.3 PO; +MACR100C2 PO; -METR-1 PO; +TRAM50 PO
[2018-01-17 19:16] VITALS: BP_SYST 11; BP_SYST 111; BP_DIAS 53; PULSE 63; RESP 16; TEMP 98.7; O2SAT 100
[2018-01-17 19:55] LABS: BILIRUBIN, URINE NEG (NEG); BLOOD, URINE NEG (NEG); GLUCOSE,URINE NEG (NEG); KETONE, URINE NEG (NEG); MUCUS URINE FEW /lpf (OCC); NITRITE,URINE NEG (NEG); PH, URINE 6.5 (5.0-8.5); SQUAMOUS EPITHELIAL CELL URINE 9 /hpf (0-5); URINE COLOR YELLOW (YELLW/STRAW); URINE LEUKOCYTE ESTERASE SMALL (NEG)
[2018-01-17 20:54] VITALS: BP 103/55
[2018-01-17] MEDS ORDERED: SODIUM CHLOR 0.9% 1000 ML INJ 1,000 ML IV SCH (21:10)
[2018-01-17] MEDS ORDERED: SODIUM CHLORIDE 0.9% FLUSH 10 ML FLUSH IV FLUSH PRN (21:15)
[2018-01-17] MEDS ORDERED: MORPHINE SULFATE 2 MG/ML INJ IV PUSH ONE (21:15)
[2018-01-17 22:15] LABS: PROTHROMBIN TIME - PATIENT 10.3 SEC (9.8-11.6)
[2018-01-17 22:22] LABS: ALBUMIN 4.1 GM/DL (3.4-5.0); AST (GOT) 13 U/L (15-37); BICARBONATE 25.1 MEQ/L (21.0-32.0); BLOOD UREA NITROGEN 10 MG/DL (7-18); CHLORIDE 107 MEQ/L (98-107); CREATININE 0.58 MG/DL (0.50-1.00); GLOMERULAR FILTRATION RATE 125 ML/MIN (>89); GLUCOSE,RANDOM 80 MG/DL (74-106); SODIUM (NA) 140 MEQ/L (136-145)
[2018-01-17 22:26] LABS: ALKALINE PHOSPHATASE 64 U/L (45-117); ALT (GPT) 14 U/L (10-53); TOTAL BILIRUBIN ADULT 0.7 MG/DL (0.2-1.0)
[2018-01-17] MEDS ORDERED: ONDANSETRON HCL 4 MG/2 ML VIAL IV PUSH ONE (22:30)
[2018-01-17] MEDS ORDERED: DIATRIZOATE MEGLUM/DIATRIZOATE SOD 9 ML CUP ONE (22:32)
--- NOTE | 2018-01-17 22:33 | PD ---
HPI Chief Complaint: Abdominal Pain Time Seen by Provider: 21:06 Travel History International Travel<30 days: No Contact w/Intl Traveler<30days: No Traveled to known affect area: No History of Present Illness HPI 27-year-old female here for evaluation of lower abdominal pain. The patient reports sharp pains for about 2 weeks. She was seen in the emergency department last week and was diagnosed with a UTI and was prescribed Macrobid. Chart review shows that her urine grew out group B strep. She states that those symptoms have resolved, however she continues to have sharp pains. History of bilateral tubal ligation. No other abdominal surgeries. She has felt nauseous but denies vomiting. No diarrhea. She denies any abnormal vaginal discharge, but states there is a slight odor. She essentially active with one partner whom she has been with for the last 10 years and believe she is in a monogamous relationship. PFSH Past Medical History Hx Anticoagulant Therapy: No Cardiovascular Problems: No Chemotherapy: No Cerebrovascular Accident: No Diabetes: No Diminished Hearing: No Respiratory: No Immunizations Current: Yes ?: Not LMP: 01/10/18 Menopausal: No : 5 Para: 4 Miscarriage: 1 Tubal Ligation: Yes Past Surgical History Section: Yes Hysterectomy: Yes (BTL) Social History Alcohol Use: No Tobacco Use: No Substance Use: No Allergies-Medications (Allergen,Severity, Reaction): Coded Allergies: No Known Allergies (Verified Adverse Reaction, Unknown, 01/17/18) Reported Meds & Prescriptions Reported Meds & Active Scripts Active Review of Systems Except as stated in HPI: all other systems reviewed are Neg Physical Exam Narrative GENERAL: Well-developed, well-nourished, comfortable, no apparent distress. SKIN: Focused skin assessment warm/dry. HEAD: Atraumatic. Normocephalic. EYES: Pupils equal and round. No scleral icterus. No injection or drainage. ENT: Mucous membranes pink and moist. NECK: Trachea midline. No JVD. CARDIOVASCULAR: Regular rate and rhythm. RESPIRATORY: No accessory muscle use. Clear to auscultation. Breath sounds equal bilaterally. GASTROINTESTINAL: Abdomen soft, nondistended. Mild periumbilical and suprapubic tenderness without peritoneal signs. Normal bowel sounds. No hernias. 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 Normal external genitalia. Scant/whitish/physiologic vaginal discharge. Normal cervix. Mild uterine tenderness. No CMT. No adnexal masses or tenderness. MUSCULOSKELETAL: No obvious deformities. No clubbing. No cyanosis. No edema. NEUROLOGICAL: Awake and alert. No obvious cranial nerve deficits. Motor grossly within normal limits. Normal speech. PSYCHIATRIC: Appropriate mood and affect; insight and judgment normal. Data Data Last Documented VS Vital Signs Date Time Temp Pulse Resp B/P (MAP) Pulse Ox O2 Delivery O2 Flow Rate FiO2 01/17/18 22:36 Room Air 01/17/18 19:16 98.7 63 16 100 Orders Orders Urinalysis - C+S If Indicated (01/17/18 19:30) Ed Urine Pregnancytest Poc (01/17/18 19:30) Complete Blood Count With Diff (01/17/18 21:10) Comprehensive Metabolic Panel (01/17/18 21:10) Lipase (01/17/18 21:10) Prothrombin Time / Inr (Pt) (01/17/18 21:10) Act Partial Throm Time (Ptt) (01/17/18 21:10) Ct Abd/Pel W Iv Contrast(Rout) (01/17/18 21:10) Iv Access Insert/Monitor (01/17/18 21:10) Ecg Monitoring (01/17/18 21:10) Oximetry (01/17/18 21:10) Sodium Chlor 0.9% 1000 Ml Inj (Ns 1000 M (01/17/18 21:10) Sodium Chloride 0.9% Flush (Ns Flush) (01/17/18 21:15) Gc And Chlamydia Pcr (01/17/18 21:10) Wet Prep Profile (01/17/18 21:10) Morphine Inj (Morphine Inj) (01/17/18 21:15) Oral Contrast - Adult (01/17/18 21:13) Ondansetron Inj (Zofran Inj) (01/17/18 22:30) Diatrizoate Liq ( Gastroview Liq) (01/17/18 22:32) Metronidazole (Flagyl) (01/17/18 23:30) Iohexol 350 Inj (Omnipaque 350 Inj) (01/17/18 23:54) Ketorolac Inj (Toradol Inj) (01/18/18 00:15) Labs Laboratory Tests Test 01/17/18 19:26 01/17/18 21:30 01/17/18 22:28 Urine Color YELLOW Urine Turbidity HAZY Urine pH 6.5 Urine Specific [place] 1.026 Urine Protein NEG mg/dL Urine Glucose (UA) NEG mg/dL Urine Ketones NEG mg/dL Urine Occult Blood NEG Urine Nitrite NEG Urine Bilirubin NEG Urine Urobilinogen LESS THAN 2.0 MG/DL Urine Leukocyte Esterase SMALL Urine WBC 4 /hpf Urine Squamous Epithelial Cells 9 /hpf Urine Mucus FEW /lpf Microscopic Urinalysis Comment CULT NOT INDICATED White Blood Count 7.4 TH/MM3 Red Blood Count 4.09 MIL/MM3 Hemoglobin 13.4 GM/DL Hematocrit 38.1 % Mean Corpuscular Volume 93.1 FL Mean Corpuscular Hemoglobin 32.9 PG Mean Corpuscular Hemoglobin Concent 35.3 % Red Cell Distribution Width 13.7 % Platelet Count 232 TH/MM3 Mean Platelet Volume 8.1 FL Neutrophils (%) (Auto) 62.1 % Lymphocytes (%) (Auto) 27.4 % Monocytes (%) (Auto) 9.0 % Eosinophils (%) (Auto) 1.1 % Basophils (%) (Auto) 0.4 % Neutrophils # (Auto) 4.6 TH/MM3 Lymphocytes # (Auto) 2.0 TH/MM3 Monocytes # (Auto) 0.7 TH/MM3 Eosinophils # (Auto) 0.1 TH/MM3 Basophils # (Auto) 0.0 TH/MM3 CBC Comment DIFF FINAL Differential Comment Prothrombin Time 10.3 SEC Prothromb Time International Ratio 1.0 RATIO Activated Partial Thromboplast Time 27.5 SEC Blood Urea Nitrogen 10 MG/DL Creatinine 0.58 MG/DL Random Glucose 80 MG/DL Total Protein 7.0 GM/DL Albumin 4.1 GM/DL Calcium Level 10.0 MG/DL Alkaline Phosphatase 64 U/L Aspartate Amino Transf (AST/SGOT) 13 U/L Alanine Aminotransferase (ALT/SGPT) 14 U/L Total Bilirubin 0.7 MG/DL Sodium Level 140 MEQ/L Potassium Level 3.8 MEQ/L Chloride Level 107 MEQ/L Carbon Dioxide Level 25.1 MEQ/L Anion Gap 8 MEQ/L Estimat Glomerular Filtration Rate 125 ML/MIN Lipase 112 U/L Clue Cells (Wet Prep) PRESENT Vaginal Trichomonas (Wet Prep) NONE SEEN Vaginal Yeast (Wet Prep) NONE SEEN MDM Medical Decision Making Medical Screen Exam Complete: Yes Emergency Medical Condition: Yes Medical Record Reviewed: Yes Differential Diagnosis Appendicitis, colitis, cystitis, PID, ovarian cyst, ovarian torsion less likely , ectopic , BV, trichmonas Narrative Course Initial vital signs show heart rate 63, blood pressure 111/53, pulse ox 100% on room air, oral temp of 98.7F. CBC: WBC 7.4, hemoglobin 13.4, hematocrit 38.1, platelets 232. CMP is unremarkable. Lipase is 112. UA is not suggestive of UTI. Wet prep is positive for clue cells. CT abdomen pelvis: CONCLUSION: Bilateral ovarian cysts without perceptible inflammatory changes or free fluid. Followup pelvic ultrasound in 8-12 weeks is recommended. Patient was made aware of all findings. She is resting comfortably. Clinically she does not appear to be having ovarian torsion. She was started on Flagyl here in the emergency department and be discharged home with a prescription for Flagyl. She has an [employer] physician whom she can follow-up with in 2-3 months for repeat ultrasound. She is stable for discharge home and was advised on when to return to the emergency department. She verbalizes understanding and agreement with plan. Diagnosis Primary Impression: Bacterial vaginosis Additional Impression: Ovarian cyst Qualified Codes: N83.201 - Unspecified ovarian cyst, right side; N83.202 - Unspecified ovarian cyst, left side Referrals: Charge Nurse 3 days Primary Care Physician 3 days Additional Instructions: Follow-up with your [employer] [employer] physician this week. Follow-up with a primary care physician this week. Return to the emergency department for worsening symptoms or any other concerns. Scripts Metronidazole (Flagyl) 500 Mg Tab 500 MG PO BID for Infection for 7 Days, #14 TAB 0 Refills Prov: Pineda Ricardo MD 01/18/18 Tramadol (Tramadol) 50 Mg Tab 50 MG PO Q8H Y for PAIN, #15 TAB 0 Refills Prov: Pineda Ricardo MD 01/18/18 Disposition: 01 DISCHARGE HOME Condition: Stable Pineda Ricardo MD Jan 17, 2018 22:33
[2018-01-17 22:38] LABS: AUTOMATED NEUTROPHIL # 4.6 TH/MM3 (1.8-7.7); BASOPHIL % 0.4 % (0.0-2.0); EOSINOPHIL # 0.1 TH/MM3 (0-0.4); EOSINOPHIL % 1.1 % (0.0-4.0); HEMATOCRIT 38.1 % (35.0-46.0); HEMOGLOBIN 13.4 GM/DL (11.6-15.3); LYMPH % 27.4 % (9.0-44.0); MEAN CELL VOLUME 93.1 FL (80.0-100.0); MEAN CORPUSCULAR HEMOGLOBIN 32.9 PG (27.0-34.0); MEAN CORPUSCULAR HGB CONC 35.3 % (32.0-36.0); MEAN PLATELET VOLUME 8.1 FL (7.0-11.0); MONOCYTE # 0.7 TH/MM3 (0-0.9); NEUT % 62.1 % (16.0-70.0); PLATELET COUNT 232 TH/MM3 (150-450); RED BLOOD COUNT 4.09 MIL/MM3 (4.00-5.30); RED CELL DISTRIBUTION WIDTH 13.7 % (11.6-17.2); WHITE BLOOD COUNT 7.4 TH/MM3 (4.0-11.0)
[2018-01-17] MEDS ORDERED: metroNIDAZOLE 500 MG TAB PO ONE (23:30)
[2018-01-17] MEDS ORDERED: IOHEXOL 350 MG/ML 10 ML VIAL (for RAD DIAG) IVCONTRAST ONE (23:54)
--- NOTE | 2018-01-18 00:08 | RADRPT ---
EXAM DATE/TIME: 01/17/2018 23:44 [facility] COMPARISON: No previous studies available for comparison. INDICATIONS : Lower abdominal pain with nausea. IV CONTRAST: 100 cc Omnipaque 350 (iohexol) IV ORAL CONTRAST: Prescribed oral contrast ingested. RADIATION DOSE: 7.57 CTDIvol (mGy) MEDICAL HISTORY : None SURGICAL HISTORY : Tubal ligation. ENCOUNTER: Initial ACUITY: 2 weeks PAIN SCALE: 10/10 LOCATION: Bilateral lower quadrant TECHNIQUE: Volumetric scanning of the abdomen and pelvis was performed. Using automated exposure control and ad justment of the mA and/or kV according to patient size, radiation dose was kept as low as reasonably achievable to obtain optimal diagnostic quality images. DICOM format image data is available electro nically for review and comparison. FINDINGS: LOWER LUNGS: The visualized lower lungs are clear. LIVER: Homogeneous density without lesion. There is no dilation of the biliary tree. No calcified gallston es. SPLEEN: Normal size without lesion. PANCREAS: Within normal limits. KIDNEYS: Normal in size and shape. There is no mass, stone or hydronephrosis. ADRENAL GLANDS: Within normal limits. VASCULAR: There is no aortic aneurysm. BOWEL/MESENTERY: The stomach, small bowel, and colon demonstrate no acute abnormality. There is no free intraperitone al air or fluid. Normal appendix. ABDOMINAL WALL: Within normal limits. RETROPERITONEUM: There is no lymphadenopathy. BLADDER: No wall thickening or mass. REPRODUCTIVE: Right ovarian cysts measuring 5.8 and 3.1 cm present. 1.6 cm cyst on the left. CT appearance of the u terus within normal limits. INGUINAL: There is no lymphadenopathy or hernia. MUSCULOSKELETAL: Within normal limits for patient age. CONCLUSION: Bilateral ovarian cysts without perceptible inflammatory changes or free fluid. Followup pelvic ultra sound in 8-12 weeks is recommended. Felix Ortega MD on January 18, 2018 at 0:03 Board Certified Radiologist. This report was verified electronically.
[2018-01-18] MEDS ORDERED: KETOROLAC TROMETHAMINE 30 MG/ML (IVP) VIAL IV PUSH ONE (00:15)
[2018-01-18] MEDS ORDERED: TRAM50TA PO (00:21)
[2018-01-18] MEDS ORDERED: METR-1 PO (00:21)
== END 2018-01-18 00:40 | disposition home or self-care (01) ==
LOC: NEPD 18:52
DX: N76.0 Acute vaginitis (principal); B96.89 Other specified bacterial agents as the cause of diseases classified elsewhere; N83.201 Unspecified ovarian cyst, right side; N83.202 Unspecified ovarian cyst, left side
CPT/HCPCS: 74177; 80053; 81001; 83690; 84703; 85025; 85610; 85730; 87210; 87491; 87591; 96361; 96374; 96375; 99284; J1885; J2270; J2405; J7030; Q9963; Q9967